=== PATIENT | male | born 1990 | race American Indian/Alaskan Native ===

== ENCOUNTER 2017-07-28 02:34 | Emergency (ER) | payer SELFPAY ==
[2017-07-28 03:10] LABS: Basophils # (Auto) 0.1 K/mm3 (0.0-0.1); Basophils % (Auto) 0.5 % (0.0-1.8); Eosinophils % (Auto) 0.1 % (0.0-4.3); Hematocrit 43.1 % (35.5-45.6); Hemoglobin 14.2 gm/dl (11.8-15.2); Lymphocytes # (Auto) 1.5 K/mm3 (1.2-5.4); Lymphocytes % (Auto) 11.9 % (13.4-35.0); Mean Corpuscular HGB Conc 33 % (32-34); Mean Corpuscular Hemoglobin 31 pg (28-32); Mean Corpuscular Volume 94 fl (84-94); Monocytes # (Auto) 0.8 K/mm3 (0.0-0.8); Monocytes % (Auto) 6.7 % (0.0-7.3); Red Blood Count 4.58 M/mm3 (3.65-5.03); Red Cell Distribution Width 12.9 % (13.2-15.2)
[2017-07-28 03:11] LABS: Platelet Count 193 K/mm3 (140-440)
[2017-07-28 03:30] LABS: BUN/Creatinine Ratio 15; Blood Urea Nitrogen 21 mg/dL (9-20); Calcium 9.6 mg/dL (8.4-10.2); Hemolysis Index 24
[2017-07-28 03:47] LABS: Bacteria,Urine 1+ /HPF (Negative); Bilirubin,Urine NEG (Negative); Blood,Urine LG (Negative); Color,Urine Yellow (Yellow); Hyaline Casts,Urine 3 /LPF; Mucus,Urine 1+ /HPF
[2017-07-28 03:48] LABS: RBC,Urine > 182.0 /HPF (0.0-6.0)
[2017-07-28 03:51] LABS: Amphetamine Screen,Urine PRESUMPTIVE NEGATIVE; Benzodiazepines Screen,Urine PRESUMPTIVE NEGATIVE; Cocaine Screen,Urine PRESUMPTIVE NEGATIVE; Methadone Screen,Urine PRESUMPTIVE NEGATIVE; Opiate Screen,Urine PRESUMPTIVE NEGATIVE
[2017-07-28] MEDS ORDERED: XYLOCAINE 1% MPF 5 mL INFILTRATI ONE (04:00)
[2017-07-28] MEDS ORDERED: BOOSTRIX IM ONE (04:00)
[2017-07-28] MEDS ORDERED: ROCEPHIN IM ONE (04:00)
[2017-07-28 04:10] LABS: Cannabinoid Screen,Urine PRESUMPTIVE POSITIVE
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
[2017-07-28] MEDS ORDERED: KEPPRA PO ONE (04:45)
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
[2017-07-28] MEDS ORDERED: KEPPRA PO SCH (10:00)
[2017-07-28 11:16] VITALS: BP 131/77
== END 2017-07-28 10:15 | disposition home or self-care (01) ==
LOC: ED 02:34
DX: R45.851 Suicidal ideations (principal); G40.909 Epilepsy, unspecified, not intractable, without status epilepticus; F17.200 Nicotine dependence, unspecified, uncomplicated; Z98.2 Presence of cerebrospinal fluid drainage device
CPT/HCPCS: 36415; 71046; 80048; 80307; 81001; 85025; 87086; 90471; 90715; 93005; 93010; 96372; 99284; G0480; J0696; 80320

== ENCOUNTER 2017-07-28 20:06 | Emergency (ER) | payer SELFPAY ==
[2017-07-28 20:58] LABS: Hemoglobin 13.3 gm/dl (11.8-15.2); Mean Corpuscular HGB Conc 33 % (32-34); Mean Corpuscular Hemoglobin 31 pg (28-32); Mean Corpuscular Volume 94 fl (84-94); Platelet Count 165 K/mm3 (140-440); Red Blood Count 4.27 M/mm3 (3.65-5.03); Red Cell Distribution Width 12.9 % (13.2-15.2)
[2017-07-28 21:12] LABS: BUN/Creatinine Ratio 15; Blood Urea Nitrogen 16 mg/dL (9-20); Calcium 9.3 mg/dL (8.4-10.2); Hemolysis Index 5
[2017-07-28] MEDS ORDERED: KEPPRA 1,000 MG/NS 0.75% 100ML 1,000 MG/100 ML BAG IV ONE (21:24)
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
[2017-07-28 23:03] VITALS: BP 116/76
== END 2017-07-28 22:30 | disposition home or self-care (01) ==
LOC: ED 20:06
DX: G40.909 Epilepsy, unspecified, not intractable, without status epilepticus (principal); F17.200 Nicotine dependence, unspecified, uncomplicated
CPT/HCPCS: 36415; 80048; 85027; 99283; J1953

== ENCOUNTER 2017-08-18 18:39 | Emergency (ER) | payer SELFPAY ==
[2017-08-18 19:14] VITALS: BP 129/76
[2017-08-18] MEDS ORDERED: KEPPRA PO ONE (19:15)
[2017-08-18] MEDS ORDERED: ATIVAN IV ONE (19:15)
--- NOTE | 2017-08-18 19:19 | Emergency Department Report ---
ED Seizure HPI - General Chief Complaint: Seizure Stated Complaint: SEIZURE /FALL Time Seen by Provider: 08/18/17 19:07 Source: patient, EMS Limitations: No Limitations, Other - History of Present Illness Initial Comments: Mr. Pickett has hx of TBI which occurred March 2017. 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 He has been in good health. Bystanders witnessed seizure vs syncope. He denies aura preceding seizure. Last dose Keppra this AM. Complaint: possible seizure -: Sudden Description of Episode: loss of consciousness Witnessed:: Yes Trauma: Yes (minor abrasions to left lower face, right hand/wrist, edematous lip ) Seizure History: known seizure disorder Place: street/outdoors Possible Precipitating Event: none Associated Symptoms: denies other symptoms Treatments Prior to Arrival: none - Related Data Previous Rx's Medication Instructions Recorded Last Taken Type Nitrofurantoin [place]/M-Cryst 100 mg PO Q12HR #10 capsule 07/28/17 Unknown Rx [Macrobid CAP] levETIRAcetam [Keppra] 500 mg PO BID #60 tablet 07/28/17 Unknown Rx Allergies Allergy/AdvReac Type Severity Reaction Status Date / Time No Known Allergies Allergy Verified 07/28/17 03:10 ED Review of Systems ROS: Stated complaint: SEIZURE /FALL Other details as noted in HPI ED Past Medical Hx - Past Medical History Previous Medical History?: Yes Hx Seizures: Yes Additional medical history: TBI 2014 - Surgical History Past Surgical History?: Yes Additional Surgical History: ventricular shunt to abdomen - Social History Smoking Status: Current Every Day Smoker Substance Use Type: None - Medications Home Medications: Home Medications Medication Instructions Recorded Confirmed Last Taken Type Nitrofurantoin [place]/M-Cryst 100 mg PO Q12HR #10 capsule 07/28/17 Unknown Rx [Macrobid CAP] levETIRAcetam [Keppra] 500 mg PO BID #60 tablet 07/28/17 Unknown Rx ED Physical Exam - General Limitations: Other General appearance: alert, in no apparent distress - Head Head exam: Present: atraumatic, normocephalic, other (left lower lip edematous, superficial abrasion left cheek) - Eye Eye exam: Present: normal appearance, PERRL - ENT ENT exam: Present: normal exam, mucous membranes moist - Neck Neck exam: Present: normal inspection. Absent: tenderness, meningismus - Respiratory Respiratory exam: Present: normal lung sounds bilaterally. Absent: respiratory distress, wheezes, rales, rhonchi - Cardiovascular Cardiovascular Exam: Present: regular rate, normal rhythm, normal heart sounds. Absent: systolic murmur, diastolic murmur, rubs, gallop - GI/Abdominal GI/Abdominal exam: Present: soft, normal bowel sounds. Absent: distended, tenderness, guarding, rebound - Rectal Rectal exam: Present: deferred - Extremities Exam Extremities exam: Present: normal inspection - Back Exam Back exam: Present: normal inspection, full ROM - Neurological Exam Neurological exam: Present: alert, oriented X3 - Psychiatric Psychiatric exam: Present: normal affect, normal mood, other (pleasant cooperative insightful) - Skin Skin exam: Present: warm, dry, intact, normal color, abrasion (small abrasions right elbow wrist and hand). Absent: rash ED Course Vital Signs 08/18/17 08/18/17 19:06 19:12 Temperature 98.9 F Pulse Rate 77 Respiratory 18 18 Rate Blood Pressure 129/76 [Right] O2 Sat by Pulse 99 99 Oximetry ED Medical Decision Making - Lab Data Result diagrams: 08/18/17 19:14 08/18/17 19:14 - EKG Data -: EKG Interpreted by Me EKG shows normal: sinus rhythm, axis, intervals, QRS complexes, ST-T waves Rate: normal (70 bpm) - Medical Decision Making Mr. Pickett presents after likely seizure. According to EMS he was found combative initially. He is cooperative and insightful. He is able tov ambulate without difficulty. No evidence of severe injury from fall to ground. He has several abrasions. Discharged home in stable condition. He received IV Ativan and oral Keppra load. Critical care attestation.: If time is entered above; I have spent that time in minutes in the direct care of this critically ill patient, excluding procedure time. ED Disposition Clinical Impression: Seizure, Abrasion Disposition: DC-01 TO HOME OR SELFCARE Is pt being admited?: No Does the pt Need Aspirin: No Condition: Stable Instructions: Recurrent Seizures Adult (ED) Time of Disposition: 20:49
[2017-08-18 19:29] LABS: Hematocrit 41.8 % (35.5-45.6); Hemoglobin 13.8 gm/dl (11.8-15.2); Mean Corpuscular HGB Conc 33 % (32-34); Mean Corpuscular Hemoglobin 31 pg (28-32); Mean Corpuscular Volume 95 fl (84-94); Red Cell Distribution Width 12.8 % (13.2-15.2)
[2017-08-18 19:47] LABS: BUN/Creatinine Ratio 16; Blood Urea Nitrogen 14 mg/dL (9-20); Calcium 9.4 mg/dL (8.4-10.2); Hemolysis Index 12
[2017-08-18 19:56] LABS: Platelet Count 166 K/mm3 (140-440)
[2017-08-18] MEDS ORDERED: TRIPLE ANTIBIOTIC TP ONE (20:51)
== END 2017-08-18 20:10 | disposition home or self-care (01) ==
LOC: ED 18:39
DX: S60.511A Abrasion of right hand, initial encounter (principal); S00.81XA Abrasion of other part of head, initial encounter; F17.200 Nicotine dependence, unspecified, uncomplicated; W18.39XA Other fall on same level, initial encounter; Y93.89 Activity, other specified; Y92.89 Other specified places as the place of occurrence of the external cause; Y99.8 Other external cause status
CPT/HCPCS: 36415; 80048; 85027; 93005; 93010; 96374; 99284; J2060

== ENCOUNTER 2017-10-01 11:16 | Emergency (ER) | payer MEDICAID, OTHER ==
[2017-10-01] MEDS ORDERED: KEPPRA 1,000 MG in D5W 100 ML IV ONE (11:35)
[2017-10-01] MEDS ORDERED: NACL 0.9% 1000 ML 1,000 ML IV ONE (11:35)
[2017-10-01] MEDS ORDERED: KEPPRA 1,000 MG/NS 0.75% 100ML 1,000 MG/100 ML BAG IV ONE (12:00)
[2017-10-01 12:10] VITALS: BP 136/79
[2017-10-01 12:32] LABS: Hematocrit 39.9 % (35.5-45.6); Mean Corpuscular HGB Conc 33 % (32-34); Mean Corpuscular Hemoglobin 31 pg (28-32); Mean Corpuscular Volume 94 fl (84-94); Platelet Count 167 K/mm3 (140-440); Red Blood Count 4.24 M/mm3 (3.65-5.03); Red Cell Distribution Width 12.6 % (13.2-15.2)
[2017-10-01 12:47] LABS: BUN/Creatinine Ratio 12; Blood Urea Nitrogen 11 mg/dL (9-20); Calcium 9.1 mg/dL (8.4-10.2); Hemolysis Index 6
--- NOTE | 2017-10-01 13:11 | Emergency Department Report ---
ED Seizure HPI - General Chief Complaint: Seizure Stated Complaint: BITE AMANDA SANTORO Time Seen by Provider: 10/01/17 11:35 Source: patient Mode of arrival: Ambulatory Limitations: No Limitations - History of Present Illness MD Complaint: seizure -: days(s) (reports a seizure episode yesterday) Description of Episode: loss of consciousness Witnessed:: Yes Trauma: Yes Seizure History: known seizure disorder, history of non-compliance (reports no Keppra in 5 days) [address]: home Possible Precipitating Event: medication (lack of medication) Associated Symptoms: tongue injury. denies: chest pain, confusion, cough, diaphoresis, fever/chills, loss of appetite, malaise, rash, shortness of breath , syncope, weakness, shoulder dislocation - Related Data Previous Rx's Medication Instructions Recorded Last Taken Type levETIRAcetam [Keppra] 500 mg PO BID #60 tablet 10/01/17 Unknown Rx Allergies Allergy/AdvReac Type Severity Reaction Status Date / Time No Known Allergies Allergy Verified 07/28/17 03:10 ED Review of Systems ROS: Stated complaint: BITE AMANDA SANTORO Other details as noted in HPI Other: GENERAL: No weight change, fatigue, weakness, fever, chills, or night sweats SKIN: No changes in skin or hair, no itching, no rashes, no jaundice HEAD: No trauma, headache, or visual changes EYES: No blurriness, tearing, itching, acute visual loss, conjunctival discoloration, or scleral icterus EARS: No hearing loss, tinnitus, vertigo, or earache NOSE: No rhinorrhea, stuffiness, sneezing, itching, or epistaxis MOUTH: Bit tongue yesterday after reported seizure episode. No bleeding gums, hoarseness, sore throat, or swelling CARDIAC: No new murmur, chest pain, palpitations, dyspnea on exertion, orthopnea , PND, or edema RESPIRATORY: No shortness of breath, wheeze, cough, sputum production, hemoptysis, pneumonia, asthma, bronchitis, or emphysema GI: No change in appetite, nausea, vomiting, dysphagia, change in bowel frequency, diarrhea, constipation, bleeding, hematemesis, melena, hematochezia, or abdominal pain URINARY: No frequency, urgency, polyuria, dysuria, hematuria, or incontinence MUSCULOSKELETAL: No muscle weakness, joint stiffness, decrease in range of motion, redness, swelling NEUROLOGIC: No loss of sensation, numbness, tingling, tremors, weakness, paralysis, HEMATOLOGIC: No anemia, easy bruising, bleeding, petechiae, or purpura ENDOCRINE: No hot or cold intolerance, sweating, polyuria, polydipsia or, polyphagia no thyroid problems PSYCHIATRIC: No change in mood, no anxiety, no depression ED Past Medical Hx - Past Medical History Previous Medical History?: Yes Hx Seizures: Yes Additional medical history: tramatic brain injury 2014 - Surgical History Past Surgical History?: Yes Additional Surgical History: ventricular shunt to abdomen - Social History Smoking Status: Current Every Day Smoker Substance Use Type: None - Medications Home Medications: Home Medications Medication Instructions Recorded Confirmed Last Taken Type levETIRAcetam [Keppra] 500 mg PO BID #60 tablet 10/01/17 Unknown Rx ED Physical Exam - General Limitations: No Limitations - Other Other exam information: GENERAL: Patient in no acute distress HEAD: Normocephalic, atraumatic EYES: PERRLA, EOM intact, no scleral icterus, visual dwyer and acuity wnl NOSE: No tenderness, discharge, sinus tenderness MOUTH: Bite carla on tongue no active bleeding. No erythema, bleeding, exudate HEART: Regular rate and rhythm, no murmur, S1-S2 are auscultated, pulses are symmetric LUNGS: bilateral breath sounds. No wheezing, rales, rhonchi ABDOMEN: Normal bowel sounds, no tenderness, no rebound, no guarding, no masses , no CVA tenderness MUSCULOSKELETAL: Normal joint range of motion, no redness, no swelling, no tenderness NEUROLOGIC: GCS 15, Alert and Oriented x3, Cranial nerves intact, normal sensation, normal strength, normal gait, no cerebellar deficit PSYCHIATRIC: No homicidal or suicidal ideation, no anxiety, no depression, no hallucinations SKIN: Skin is warm and dry, no wounds, no rashes ED Course Vital Signs 10/01/17 10/01/17 10/01/17 11:21 12:09 12:14 Temperature 98.6 F 80 F L Pulse Rate 65 80 Respiratory 17 16 16 Rate Blood Pressure 130/86 Blood Pressure 136/79 [Left] O2 Sat by Pulse 100 100 100 Oximetry ED Medical Decision Making - Lab Data Result diagrams: 10/01/17 11:57 10/01/17 11:57 Laboratory Results - last 24 hr 10/01/17 10/01/17 11:57 11:57 WBC 6.3 RBC 4.24 Hgb 13.0 Hct 39.9 MCV 94 MCH 31 MCHC 33 RDW 12.6 L Plt Count 167 Sodium 138 Potassium 4.0 Chloride 100.6 Carbon Dioxide 30 Anion Gap 11 BUN 11 Creatinine 0.9 Estimated GFR > 60 BUN/Creatinine Ratio 12 Glucose 90 Calcium 9.1 - Medical Decision Making Patient comfortable. Updated with results. Plan discharge with outpatient follow up. Patient agrees with plan and will return if symptoms worsen. Critical care attestation.: If time is entered above; I have spent that time in minutes in the direct care of this critically ill patient, excluding procedure time. ED Disposition Clinical Impression: Seizure Disposition: DC-01 TO HOME OR SELFCARE Is pt being admited?: No Condition: Stable Instructions: Recurrent Seizures Adult (ED) Prescriptions: levETIRAcetam [Keppra] 500 mg PO BID #60 tablet Referrals: [facility] [Outside] - 2-3 Days [facility] [Outside] - 2-3 Days Time of Disposition: 13:10
== END 2017-10-01 14:20 | disposition home or self-care (01) ==
LOC: ED 11:16
DX: R56.9 Unspecified convulsions (principal); F17.200 Nicotine dependence, unspecified, uncomplicated
CPT/HCPCS: 36415; 80048; 85027; 96365; 99284; J1953; J7030

== ENCOUNTER 2017-10-17 17:23 | Emergency (ER) | payer MEDICAID ==
[2017-10-17] MEDS ORDERED: NORCO 5/325 PO ONE (18:13)
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
[2017-10-17 20:09] VITALS: BP 145/82
--- NOTE | 2017-10-18 09:47 | XRay Report ---
FINAL REPORT EXAM: XR SPINE THORACIC 2V HISTORY: midback pain TECHNIQUE: Two views thoracic spine. PRIORS: None currently available. FINDINGS: Kyphotic alignment. Vertebral body heights are uniform. No fracture. Disc spaces are intact. No subluxation. Prevertebral soft tissues are unremarkable. No scoliosis. No suspicious osseous lesions. No vertebral anomalies. Partially visualized right PERINATAL TECHNICIAN shunt catheter appears grossly intact. IMPRESSION: Unremarkable.
== END 2017-10-17 19:50 | disposition home or self-care (01) ==
LOC: ED 17:23
DX: S09.90XA Unspecified injury of head, initial encounter (principal); M54.6 Pain in thoracic spine; F17.200 Nicotine dependence, unspecified, uncomplicated; Z87.820 Personal history of traumatic brain injury; Z98.2 Presence of cerebrospinal fluid drainage device; V87.7XXA Person injured in collision between other specified motor vehicles (traffic), initial encounter; Y93.89 Activity, other specified; Y99.8 Other external cause status; Y92.410 Unspecified street and highway as the place of occurrence of the external cause
CPT/HCPCS: 70450; 72070

== ENCOUNTER 2017-10-21 21:05 | Emergency (ER) | payer MEDICAID ==
[2017-10-21 21:48] LABS: Hematocrit 42.7 % (35.5-45.6); Hemoglobin 14.4 gm/dl (11.8-15.2); Mean Corpuscular HGB Conc 34 % (32-34); Mean Corpuscular Hemoglobin 31 pg (28-32); Mean Corpuscular Volume 93 fl (84-94); Red Blood Count 4.58 M/mm3 (3.65-5.03); Red Cell Distribution Width 12.7 % (13.2-15.2)
[2017-10-21 21:50] LABS: Platelet Count 196 K/mm3 (140-440)
[2017-10-21 22:07] LABS: BUN/Creatinine Ratio 17; Blood Urea Nitrogen 15 mg/dL (9-20); Calcium 9.2 mg/dL (8.4-10.2); Hemolysis Index 3
[2017-10-22] MEDS ORDERED: KEPPRA PO ONE (02:12)
[2017-10-22 04:34] VITALS: BP 116/71
== END 2017-10-22 04:38 | disposition left against medical advice (07) ==
LOC: ED 21:05
DX: R56.9 Unspecified convulsions (principal)
CPT/HCPCS: 36415; 80048; 82962; 85027

== ENCOUNTER 2017-11-11 10:44 | Emergency (ER) | payer MEDICAID ==
[2017-11-11 11:03] VITALS: BP 145/66
--- NOTE | 2017-11-11 11:21 | Emergency Department Report ---
ED General Adult HPI - General Chief complaint: Medical Clearance Stated complaint: MED REFILL/ PILLS OUT Time Seen by Provider: 11/11/17 11:15 Source: patient Mode of arrival: Ambulatory Limitations: No Limitations - History of Present Illness Initial comments: Patient is a 27-year-old male who has a past medical history of seizures who is here for medication refill. Patient states he is now out of his Keppra. Patient is in recently moved to [place] and then only get his meds filled in [facility] [place] [place]. Patient does have a well care insurance. Patient has a history of traumatic brain injury and does take Her. Patient's had no recurrent seizure activities. Patient without his meds for approximately 2 days. - Related Data Previous Rx's Medication Instructions Recorded Last Taken Type Cyclobenzaprine [Flexeril] 10 mg PO TID PRN #10 tablet 10/17/17 Unknown Rx Ibuprofen [Motrin] 600 mg PO Q8H PRN #20 tablet 10/17/17 Unknown Rx levETIRAcetam [Keppra] 500 mg PO BID #60 tablet 11/11/17 Unknown Rx Allergies Allergy/AdvReac Type Severity Reaction Status Date / Time No Known Allergies Allergy Verified 07/28/17 03:10 ED Review of Systems ROS: Stated complaint: MED REFILL/ PILLS OUT Other details as noted in HPI Comment: All other systems reviewed and negative ED Past Medical Hx - Past Medical History Previous Medical History?: Yes Hx Seizures: Yes Additional medical history: tramatic brain injury 2014 - Surgical History Past Surgical History?: Yes Additional Surgical History: ventricular shunt to abdomen, plate in head - Social History Smoking Status: Current Every Day Smoker Substance Use Type: None - Medications Home Medications: Home Medications Medication Instructions Recorded Confirmed Last Taken Type Cyclobenzaprine [Flexeril] 10 mg PO TID PRN #10 tablet 10/17/17 Unknown Rx Ibuprofen [Motrin] 600 mg PO Q8H PRN #20 tablet 10/17/17 Unknown Rx levETIRAcetam [Keppra] 500 mg PO BID #60 tablet 11/11/17 Unknown Rx ED Physical Exam - General Limitations: No Limitations General appearance: alert, in no apparent distress - Head Head exam: Present: atraumatic, normocephalic - Eye Eye exam: Present: normal appearance - ENT ENT exam: Present: mucous membranes moist - Neck Neck exam: Present: normal inspection - Respiratory Respiratory exam: Present: normal lung sounds bilaterally. Absent: respiratory distress, wheezes, rales, rhonchi - Cardiovascular Cardiovascular Exam: Present: regular rate, normal rhythm. Absent: systolic murmur, diastolic murmur, rubs, gallop - GI/Abdominal GI/Abdominal exam: Present: soft, normal bowel sounds. Absent: distended, tenderness, guarding - Rectal Rectal exam: Present: deferred - Extremities Exam Extremities exam: Present: normal inspection - Back Exam Back exam: Present: normal inspection - Neurological Exam Neurological exam: Present: alert, oriented X3 - Psychiatric Psychiatric exam: Present: normal affect, normal mood - Skin Skin exam: Present: warm, dry, intact, normal color. Absent: rash ED Course Vital Signs 11/11/17 11:00 Temperature 98.2 F Pulse Rate 79 Respiratory 18 Rate Blood Pressure 145/66 O2 Sat by Pulse 100 Oximetry Critical care attestation.: If time is entered above; I have spent that time in minutes in the direct care of this critically ill patient, excluding procedure time. ED Disposition Clinical Impression: Seizure disorder Disposition: DC-01 TO HOME OR SELFCARE Is pt being admited?: No Does the pt Need Aspirin: No Condition: Stable Prescriptions: levETIRAcetam [Keppra] 500 mg PO BID #60 tablet Referrals: PRIMARY CARE, [Primary Care Provider] - 3-5 Days
== END 2017-11-11 11:28 | disposition home or self-care (01) ==
LOC: ED 10:44
DX: G40.909 Epilepsy, unspecified, not intractable, without status epilepticus (principal); F17.200 Nicotine dependence, unspecified, uncomplicated
CPT/HCPCS: 99282

== ENCOUNTER 2017-12-06 09:25 | Emergency (ER) | payer MEDICAID ==
[2017-12-06 09:52] VITALS: BP 141/83
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
== END 2017-12-06 10:43 | disposition home or self-care (01) ==
LOC: ED 09:25
DX: R56.9 Unspecified convulsions (principal); Z76.0 Encounter for issue of repeat prescription; F17.200 Nicotine dependence, unspecified, uncomplicated
CPT/HCPCS: 99282

== ENCOUNTER 2017-12-21 23:04 | Emergency (ER) | payer MEDICAID ==
[2017-12-21] MEDS ORDERED: KEPPRA 1,000 MG/NS 0.75% 100ML 1,000 MG/100 ML BAG IV ONE (23:21)
[2017-12-21 23:39] LABS: Hematocrit 40.2 % (35.5-45.6); Hemoglobin 13.5 gm/dl (11.8-15.2); Mean Corpuscular HGB Conc 34 % (32-34); Mean Corpuscular Hemoglobin 32 pg (28-32); Mean Corpuscular Volume 95 fl (84-94); Red Blood Count 4.24 M/mm3 (3.65-5.03); Red Cell Distribution Width 12.7 % (13.2-15.2)
--- NOTE | 2017-12-21 23:49 | Emergency Department Report ---
HPI - General Chief Complaint: Seizure Time Seen by Provider: 12/21/17 23:18 - HPI HPI: 27-year-old male presents to the emergency department by EMS after he had a witnessed seizure earlier this evening. The patient was out with friends when he had the seizure and they called the ambulance. Patient has a history of a traumatic brain injury from 2014 and he has had seizures since that time. He is on Keppra 500 mg twice daily but has been out of his medication for the past 3 days. He denies having any primary care physician or neurologist. Patient is currently awake and alert and has no current complaints. The patient has been to [facility] emergency department multiple times for medication refill for his seizure meds. ED Past Medical Hx - Past Medical History Hx Seizures: Yes Additional medical history: tramatic brain injury 2014 - Surgical History Additional Surgical History: ventricular shunt to abdomen, plate in head - Social History Smoking Status: Unknown if ever smoked - Medications Home Medications: Home Medications Medication Instructions Recorded Confirmed Last Taken Type Cyclobenzaprine [Flexeril] 10 mg PO TID PRN #10 tablet 10/17/17 Unknown Rx Ibuprofen [Motrin] 600 mg PO Q8H PRN #20 tablet 10/17/17 Unknown Rx levETIRAcetam [Keppra] 500 mg PO BID #60 tablet 12/22/17 Unknown Rx ED Review of Systems ROS: Stated complaint: SEIZURE Other details as noted in HPI Comment: All other systems reviewed and negative Constitutional: denies: chills, fever Eyes: denies: eye pain, eye discharge, vision change ENT: denies: ear pain, throat pain Respiratory: denies: cough, shortness of breath, wheezing Cardiovascular: denies: chest pain, palpitations Gastrointestinal: denies: abdominal pain, nausea, diarrhea Genitourinary: denies: urgency, dysuria Musculoskeletal: denies: back pain, joint swelling, arthralgia Skin: denies: rash, lesions Neurological: other (seizure). denies: numbness Physical Exam - Physical Exam Vital Signs: Vital Signs 12/21/17 23:17 Respiratory 14 Rate Physical Exam: GENERAL: The patient is well-developed well-nourished. HENT: Normocephalic. Atraumatic. Patient has moist mucous membranes. EYES: Extraocular motions are intact. Pupils equal reactive to light bilaterally. NECK: Supple. Trachea is midline. CHEST/LUNGS: Clear to auscultation. There is no respiratory distress noted. HEART/CARDIOVASCULAR: Regular. There is no tachycardia. There is no murmur. ABDOMEN: Abdomen is soft, nontender. Patient has normal bowel sounds. There is no abdominal distention. SKIN: Skin is warm and dry. NEURO: The patient is awake, alert, and oriented. The patient is cooperative. The patient has no focal neurologic deficits. The patient has normal speech. Cranial nerves II through XII grossly intact. MUSCULOSKELETAL: There is no tenderness or deformity. There is no limitation range of motion. There is no evidence of acute injury. ED Course Vital Signs 12/21/17 23:17 Respiratory 14 Rate ED Medical Decision Making - Lab Data Result diagrams: 12/21/17 23:27 12/21/17 23:27 - EKG Data -: EKG Interpreted by Me EKG shows normal: sinus rhythm, axis, intervals, QRS complexes, ST-T waves ( early repolarization) Rate: normal - EKG Data When compared to previous EKG there are: previous EKG unavailable Interpretation: other (sinus rhythm, normal axis, normal intervals, early repolarization) - Medical Decision Making Patient presents to the emergency department after having a witnessed seizure prior to presentation. Since he has been in the emergency department he has been awake, alert and oriented. No focal, motor or sensory deficits and his cranial nerves are intact. His labs have been unremarkable. Vital signs stable throughout his ED course. He was loaded with Keppra 1 g. Patient has been reevaluated multiple times over multiple hours and there has been no further seizure-like activity. Prior to discharge the patient was ambulatory in the emergency department and appeared stable. He appears safe for discharge home at this time. He will be given multiple primary care referrals as well as a neurology referral. He'll be given a refill of his antiepileptic medication. We discussed staying away from any further alcohol use or any illicit drug use. He has been instructed to return to the emergency Department with any worsening of symptoms or any acute distress. He understands and agrees to the plan. - Differential Diagnosis Epilepsy, substance abuse, dysrythmia Critical Care Time: No Critical care attestation.: If time is entered above; I have spent that time in minutes in the direct care of this critically ill patient, excluding procedure time. ED Disposition Clinical Impression: Seizure disorder, Noncompliance with medication regimen Disposition: DC- TO HOME OR SELFCARE Is pt being admited?: No Condition: Stable Instructions: Recurrent Seizures Adult (ED) Additional Instructions: Please start taking your Keppra compliantly. Return to the emergency department with any further seizure-like activity, worsening of her symptoms, or any acute distress. I have given you multiple names for primary care physicians in the area to establish care. I have also given a referral for a local neurologist, Dr. Edwards, to follow up regarding your seizure history. Please try and stay away from any alcohol use, any illicit drug use as these things can decrease your seizure threshold. Prescriptions: levETIRAcetam [Keppra] 500 mg PO BID #60 tablet Referrals: PRIMARY CARE, [Primary Care Provider] - 3-5 Days KB EDWARDS MD [Staff Physician] - 3-5 Days MARIA R DALE MD [Staff Physician] - 3-5 Days OLGA MILLER MD [Staff Physician] - 3-5 Days [facility] [Outside] - 3-5 Days Time of Disposition: 01:58
[2017-12-21 23:59] LABS: BUN/Creatinine Ratio 17; Blood Urea Nitrogen 20 mg/dL (9-20); Calcium 9.8 mg/dL (8.4-10.2); Hemolysis Index 44
[2017-12-22] MEDS ORDERED: D50W (25GM) Syringe IV ONE (00:07)
[2017-12-22] MEDS ORDERED: NACL 0.9% 1000 ML 1,000 ML IV ONE (00:07)
[2017-12-22 00:30] LABS: Platelet Count 145 K/mm3 (140-440)
[2017-12-22 02:18] VITALS: BP 117/61
== END 2017-12-22 02:19 | disposition home or self-care (01) ==
LOC: ED 23:04
DX: G40.909 Epilepsy, unspecified, not intractable, without status epilepticus (principal); E03.9 Hypothyroidism, unspecified
CPT/HCPCS: 36415; 80048; 82550; 84443; 85027; 93005; 93010; 96365; 96375; 99284; G0480; J1953; J7030; 80320

== ENCOUNTER 2018-06-06 08:47 | Emergency (ER) | payer OTHER, MEDICAID ==
[2018-06-06 10:03] LABS: Basophils # (Auto) 0.1 K/mm3 (0.0-0.1); Basophils % (Auto) 0.5 % (0.0-1.8); Hematocrit 41.9 % (35.5-45.6); Hemoglobin 13.8 gm/dl (11.8-15.2); Lymphocytes % (Auto) 7.9 % (13.4-35.0); Mean Corpuscular HGB Conc 33 % (32-34); Mean Corpuscular Volume 93 fl (84-94); Monocytes # (Auto) 1.7 K/mm3 (0.0-0.8); Monocytes % (Auto) 12.8 % (0.0-7.3); Platelet Count 175 K/mm3 (140-440); Red Blood Count 4.51 M/mm3 (3.65-5.03); Red Cell Distribution Width 12.4 % (13.2-15.2)
--- NOTE | 2018-06-06 10:10 | Emergency Department Report ---
HPI - General Chief Complaint: Altered Mental Status Time Seen by Provider: 06/06/18 09:47 - HPI HPI: Room 24 The patient is a 28-year-old male presenting with a chief complaint of altered mental status. 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 States the patient presented today with garbled speech and an episode of vomiting. Correctional officers were familiar with the patient states he is normally clear alert and oriented. Patient has mumbling speech that is unintelligible Location: Mental State Duration: [See above] Quality: Altered Severity: Moderate Modifying factors: [see above] Context: [see above] Mode of transportation: [not driving] ED Past Medical Hx - Past Medical History Hx Seizures: Yes Additional medical history: tramatic brain injury 2014 - Surgical History Additional Surgical History: ventricular shunt to abdomen, plate in head - Family History Family history: no significant - Social History Smoking Status: Unknown if ever smoked Substance Use Type: None - Medications Home Medications: Home Medications Medication Instructions Recorded Confirmed Last Taken Type Cyclobenzaprine [Flexeril] 10 mg PO TID PRN #10 tablet 10/17/17 Unknown Rx Ibuprofen [Motrin] 600 mg PO Q8H PRN #20 tablet 10/17/17 Unknown Rx levETIRAcetam [Keppra] 500 mg PO BID #60 tablet 12/22/17 Unknown Rx ED Review of Systems ROS: Stated complaint: AMS Other details as noted in HPI Comment: Unobtainable due to pts medical conditions Physical Exam - Physical Exam Vital Signs: Vital Signs 06/06/18 09:33 Temperature 98.7 F Pulse Rate 78 Respiratory 18 Rate Blood Pressure 144/85 Physical Exam: GENERAL: The patient is well-developed well-nourished male lying on stretcher not appearing to be in acute distress. [] HEENT: Extraocular motions are intact. Patient has moist mucous membranes. NECK: Supple. Trachea midline CHEST/LUNGS: Clear to auscultation. There is no respiratory distress noted. HEART/CARDIOVASCULAR: Regular. There is no tachycardia. There is no gallop rub or murmur. ABDOMEN: Abdomen is soft, nontender. Patient has normal bowel sounds. There is no abdominal distention. SKIN: There is no rash. There is no edema. There is no diaphoresis. NEURO: The patient is awake and alert. The patient is cooperative. The patient has no focal neurologic deficits. Cranial nerves II through XII grossly int act, no drift. Patient able to hold either leg at 30 angle for 5 seconds count. Patient has unintelligible mumbled speech MUSCULOSKELETAL: There is no evidence of acute injury. ED Course Vital Signs 06/06/18 09:33 Temperature 98.7 F Pulse Rate 78 Respiratory 18 Rate Blood Pressure 144/85 - Reevaluation(s) Reevaluation #1: 06/06/18 10:58 New senior grants officer at bedside provides further history-states patient allegedly fell and struck his head on a sink last night. He also states the pa cari always has mumbling speech - Consultations Consultation #1: 06/06/18 10:58 [facility] transfer line called 06/06/18 11:05 Patient accepted in transfer to [place] ED by Dr. Rodriguez ED Medical Decision Making - Lab Data Result diagrams: 06/06/18 09:45 06/06/18 09:45 - EKG Data -: EKG Interpreted by [facility] EKG shows normal: sinus rhythm Rate: normal - EKG Data When compared to previous EKG there are: previous EKG unavailable Interpretation: nonspecific ST-T wave brian (early repolarization. T wave inversion in lead 3) - Radiology Data Radiology results: report reviewed (CT head), image reviewed (CT head) [facility] [address] [place] [address] Cat Scan Report Signed Patient: MALINDA MCCAULEY MR#: [id number] : 1990 Acct:[id number] Age/Sex: 28 / M ADM Date: 06/06/18 Loc: ED Attending Dr: Ordering Physician: NATHANIEL CASTRO MD Date of Service: 06/06/18 Procedure(s): CT head/brain wo con Accession Number(s): [id number] cc: NATHANIEL CASTRO MD CT HEAD WITHOUT CONTRAST: HISTORY: Altered mental status, mumbling speech. TECHNIQUE: Sequential 2.5mm CT images. COMPARISON: 10/17/17. FINDINGS: Previous traumatic head injury is suspected. There are rather large areas of cortical encephalomalacia in the anterior frontal and temporal lobes bilaterally. Please correlate with history. Previous ventriculoperitoneal shunt placement is noted which is unchanged. Ventricular size is stable. There is also been previous left craniotomy changes. The craniotomy in the left parietal region appears depressed by up to 1 cm on today's exam. This is a new finding since 10/17/17 in which the craniotomy was lined up anatomically. A small left subdural hemorrhage is suspected along the left convexity measuring up to 5-7 mm in thickness. There is moderate soft tissue swelling overlying the craniotomy. The sulci of the left cerebral hemisphere are mildly effaced on today's exam but no intraparenchymal hemorrhage is appreciated. The brainstem and cerebellum are w ithin normal limits. The sinuses and mastoid air cells are adequately aerated. IMPRESSION: Previous traumatic brain injury is suspected. A new traumatic injury is also suspected. The left craniotomy site appears to be depressed by up to 1 cm when comparing to 10/17/17. A small acute left subdural hemorrhage is identified. There is mild sulcal effacement subtle left cerebral hemisphere but no obvious intraparenchymal hemorrhage or midline shift. Please correlate with the patient history and images. These findings were discussed with Dr. Castro in the emergency department at 1000 hrs. 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 ED Disposition Clinical Impression: Altered mental status, Subdural hematoma, Disruption of closure of skull or craniotomy Disposition: DC/TX-70 ANOTHER TYPE HLTHCARE Is pt being admited?: No Does the pt Need Aspirin: No Condition: Serious Referrals: PRIMARY CARE, [Primary Care Provider] - 3-5 Days Time of Disposition: 11:05 (awaiting transport)
[2018-06-06 10:30] LABS: Alanine Aminotransferase 15 units/L (7-56); Albumin 4.8 g/dL (3.9-5); BUN/Creatinine Ratio 12; Blood Urea Nitrogen 12 mg/dL (9-20); Calcium 9.8 mg/dL (8.4-10.2); Hemolysis Index 8
[2018-06-06 10:41] LABS: Free T4 (Free Thyroxine) 1.24 ng/dL (0.76-1.46)
--- NOTE | 2018-06-06 10:59 | Cat Scan Report ---
CT HEAD WITHOUT CONTRAST: HISTORY: Altered mental status, mumbling speech. TECHNIQUE: Sequential 2.5mm CT images. COMPARISON: 10/17/17. FINDINGS: Previous traumatic head injury is suspected. There are rather large areas of cortical encephalomalacia in the anterior frontal and temporal lobes bilaterally. Please correlate with history. Previous ventriculoperitoneal shunt placement is noted which is unchanged. Ventricular size is stable. There is also been previous left craniotomy changes. The craniotomy in the left parietal region appears depressed by up to 1 cm on today's exam. This is a new finding since 10/17/17 in which the craniotomy was lined up anatomically. A small left subdural hemorrhage is suspected along the left convexity measuring up to 5-7 mm in thickness. There is moderate soft tissue swelling overlying the craniotomy. The sulci of the left cerebral hemisphere are mildly effaced on today's exam but no intraparenchymal hemorrhage is appreciated. The brainstem and cerebellum are within normal limits. The sinuses and mastoid air cells are adequately aerated. IMPRESSION: Previous traumatic brain injury is suspected. A new traumatic injury is also suspected. The left craniotomy site appears to be depressed by up to 1 cm when comparing to 10/17/17. A small acute left subdural hemorrhage is identified. There is mild sulcal effacement subtle left cerebral hemisphere but no obvious intraparenchymal hemorrhage or midline shift. Please correlate with the patient history and images. These findings were discussed with Dr. Yeung in the emergency department at 1000 hrs.
[2018-06-06 11:20] VITALS: BP 135/86
== END 2018-06-06 12:21 | disposition other institution (70) ==
LOC: ED 08:47
DX: S06.5X0A Traumatic subdural hemorrhage without loss of consciousness, initial encounter (principal); T81.32XA Disruption of internal operation (surgical) wound, not elsewhere classified, initial encounter; R11.10 Vomiting, unspecified; X58.XXXA Exposure to other specified factors, initial encounter; Y93.89 Activity, other specified; Y92.89 Other specified places as the place of occurrence of the external cause; Y99.8 Other external cause status
CPT/HCPCS: 36415; 70450; 80053; 82140; 82962; 84439; 84443; 85025; 93005; 93010; 99285; G0480; 80320